=== PATIENT | female | born 1935 | race American Indian/Alaskan Native ===

== ENCOUNTER 2016-07-23 18:15 | Inpatient (IN) | payer MEDICARE ==
[2016-07-23] MEDS ORDERED: TYLENOL PR ONE (18:44)
[2016-07-23] MEDS ORDERED: TYLENOL PR STA (18:54)
[2016-07-23] MEDS ORDERED: NACL 0.9% 500 ML 500 ML IV ONE (18:54)
--- NOTE | 2016-07-23 19:31 | Emergency Department Report ---
HPI - General Chief Complaint: Altered Mental Status Time Seen by Provider: 07/23/16 19:08 - HPI HPI: Room 7 The patient is an 80-year-old female sent from her personal group home with a chief complaint of lethargy/altered mental status. Patient was afebrile her personal group home. EMS reports that the patient is at her baseline mentally however seems lethargic. The patient only responds after tactile stimulation and when questioned she denies any complaints. Location: Mental Status Duration: Unknown Quality: Lethargy Severity:. Moderate Modifying factors: [see above] Context: [see above] Mode of transportation: [not driving] ED Past Medical Hx - Past Medical History Previous Medical History?: Yes Hx Hypertension: Yes Hx Seizures: Yes Hx Psychiatric Treatment: Yes (risperidone) Hx Dementia: Yes (ALZHEIMER'S) Additional medical history: hypothyroidism - Surgical History Past Surgical History?: Yes Hx Breast Surgery: Yes (left breast mastectomy) - Family History Family history: no significant - Social History Smoking Status: Unknown if ever smoked - Medications Home Medications: Home Medications Medication Instructions Recorded Confirmed Last Taken Type Ammonium Lactate [Lac-Hydrin 225 gm TP DAILY 07/23/16 07/23/16 07/21/16 History Lotion] Anastrozole (Nf) [Arimidex (Nf)] 1 mg PO DAILY 07/23/16 07/23/16 07/23/16 History Donepezil HCl 10 mg PO DAILY 07/23/16 07/23/16 07/23/16 History Hydrochlorothiazide [Hctz] 12.5 mg PO QDAY 07/23/16 07/23/16 07/23/16 History Memantine HCl [Namenda] 5 mg PO DAILY 07/23/16 07/23/16 07/23/16 History Mometasone Furoate [Nasonex] 2 spray NS QDAY 07/23/16 07/23/16 07/19/16 History Simvastatin [Zocor TAB] 10 mg PO QHS 07/23/16 07/23/16 07/22/16 History Trazodone HCl 50 mg PO PRN 07/23/16 07/23/16 07/14/16 History amLODIPine [Norvasc] 10 mg PO DAILY 07/23/16 07/23/16 07/23/16 History risperiDONE [RisperDAL] 0.25 mg PO BID 07/23/16 07/23/16 Unknown History ED Review of Systems ROS: Stated complaint: AMS Other details as noted in HPI Comment: Unobtainable due to pts medical conditions Physical Exam - Physical Exam Vital Signs: Vital Signs 07/23/16 07/23/16 18:45 19:23 Temperature 101.6 F H Pulse Rate 83 Respiratory 18 18 Rate Blood Pressure 110/54 O2 Sat by Pulse 98 98 Oximetry Physical Exam: GENERAL: The patient is well-developed well-nourished female lying on stretcher not appearing to be in acute distress. [] HEENT: Normocephalic. Atraumatic. Patient has moist mucous membranes. NECK: Supple. Trachea midline CHEST/LUNGS: Clear to auscultation. There is no respiratory distress noted. HEART/CARDIOVASCULAR: Regular. There is no tachycardia. There is no gallop rub or murmur. ABDOMEN: Abdomen is soft, nontender. Patient has normal bowel sounds. There is no abdominal distention. SKIN: There is no rash. There is no edema. There is no diaphoresis. NEURO: The patient is asleep but awakens to tactile stimuli. The patient is cooperative. The patient has normal speech MUSCULOSKELETAL: There is no evidence of acute injury. ED Course Vital Signs 07/23/16 07/23/16 18:45 19:23 Temperature 101.6 F H Pulse Rate 83 Respiratory 18 18 Rate Blood Pressure 110/54 O2 Sat by Pulse 98 98 Oximetry ED Medical Decision Making - Lab Data Result diagrams: 07/23/16 19:11 07/23/16 19:11 Laboratory Tests 07/23/16 07/23/16 07/23/16 19:06 19:11 19:11 WBC 13.0 H RBC 3.39 L Hgb 10.2 Hct 29.5 L MCV 87 MCH 30 MCHC 34 RDW 13.9 Plt Count 190 Lymph % (Auto) 3.7 L [place] % (Auto) 6.9 Eos % (Auto) 0.0 Baso % (Auto) 0.2 Lymph # 0.5 L [place] # 0.9 H Eos # 0.0 Baso # 0.0 Seg Neutrophils % 89.2 H Seg Neutrophils # 11.6 H PT 15.0 H INR 1.19 H VBG pH Sodium Potassium Chloride Carbon Dioxide Anion Gap BUN Creatinine Estimated GFR BUN/Creatinine Ratio Glucose Lactic Acid Calcium Total Bilirubin AST ALT Alkaline Phosphatase Total Protein Albumin Albumin/Globulin Ratio Urine Color Yellow Urine Turbidity Cloudy Urine pH 6.0 Ur Specific [place] 1.009 Urine Protein 30 mg/dl Urine Glucose (UA) Neg Urine Ketones Neg Urine Blood Mod Urine Nitrite Pos Urine Bilirubin Neg Urine Urobilinogen < 2.0 Ur Leukocyte Esterase Lg Urine WBC (Auto) 153.0 H Urine RBC (Auto) 6.0 Urine Bacteria (Auto) 2+ Urine Mucus Few 07/23/16 07/23/16 07/23/16 19:11 19:11 19:11 WBC RBC Hgb Hct MCV MCH MCHC RDW Plt Count Lymph % (Auto) [place] % (Auto) Eos % (Auto) Baso % (Auto) Lymph # [place] # Eos # Baso # Seg Neutrophils % Seg Neutrophils # PT INR VBG pH 7.432 H Sodium 140 Potassium 2.6 L* Chloride 98.3 Carbon Dioxide 28 Anion Gap 16 BUN 15 Creatinine 0.8 Estimated GFR > 60 BUN/Creatinine Ratio 18.75 Glucose 118 H Lactic Acid 1.90 Calcium 8.0 L Total Bilirubin 0.40 AST 14 ALT 10 Alkaline Phosphatase 81 Total Protein 6.3 Albumin 3.4 L Albumin/Globulin Ratio 1.2 Urine Color Urine Turbidity Urine pH Ur Specific [place] Urine Protein Urine Glucose (UA) Urine Ketones Urine Blood Urine Nitrite Urine Bilirubin Urine Urobilinogen Ur Leukocyte Esterase Urine WBC (Auto) Urine RBC (Auto) Urine Bacteria (Auto) Urine Mucus - EKG Data -: EKG Interpreted by Me EKG shows normal: sinus rhythm Rate: normal - EKG Data When compared to previous EKG there are: previous EKG unavailable Interpretation: nonspecific ST-T wave ashley (biphasic twaves leads v2, v3) - Radiology Data Radiology results: image reviewed (chest x-ray) interpreted by me: Chest x-ray-no focal infiltrates, no pneumothorax - Differential Diagnosis UTI Critical care attestation.: If time is entered above; I have spent that time in minutes in the direct care of this critically ill patient, excluding procedure time. ED Disposition Clinical Impression: Fever, UTI (urinary tract infection), Hypokalemia Disposition: OP ADMITTED IP TO THIS HOSP Is pt being admited?: Yes Does the pt Need Aspirin: Yes Condition: Fair Referrals: PRIMARY CARE, [Primary Care Provider] - 3-5 Days Time of Disposition: 21:10 (hospitalist notifiedh)
--- NOTE | 2016-07-23 19:31 | Admit Criteria Form ---
Admission Criteria Documentation: SEPSIS and OTHER FEBRILE ILLNESS, W/O FOCAL INFECTION Clinical Indications for Admission to Inpatient Care ( Place 'X' for any and all applicable criteria): Admission is indicated for ANY ONE of the following (1)(2)(3)(4): [ ] I. Bacteremia [ ]II. Suspected or identified specific infection requiring hospitalization (eg, meningitis, endocarditis) [ ]III. Hemodynamic instability [ ]IV. Altered mental status [ ]V. Failure or unavailability of outpatient antimicrobial treatment [ ]. Hypoxemia [ ]VII. Seizures [ ]VIII. High-risk febrile neutropenia [ ]IX. Need for parenteral antibiotic in patient who is likely to abuse vascular access device (eg, injection drug user) [A](7) [ ]X. Temperature greater than 104.9 degrees F (40.5 degrees C) (oral) [X ]XI. Inpatient admission required rather than observation care because of ANY ONE of the following: [ X]1) Specific infection identified that is too severe for outpatient treatment or observation care trial [ ]2) Metabolic disorder (eg, hypoglycemia, hyperglycemia, metabolic acidosis) that is severe or persistent [ ]3) Temperature greater than 103.1 degrees F (39.5 degrees C) ( oral) that is not responsive to observation care treatment [ ]4) IV fluid to replace significant ongoing (eg, for over 24 hours) losses (> 3 L/m2 per day) [ ]5) Supplemental oxygen or respiratory treatments for over 24 hours that is performable only in acute inpatient setting [ ]6) Parenteral nutrition regimen need that must be implemented on inpatient basis [ ]7) Strict or protective (eg, laminar flow) isolation [ ]8) Other condition, treatment or monitoring requiring inpatient admission Extended stay beyond goal length of stay may be needed for(1)(3) [ ]a) Sepsis or septic shock(22) [ ]b) Positive blood cultures [ ]c) Insufficient oral intake [ ]d) High-risk febrile neutropenia(29)(30) [ ]e) Continued fever and clinical instability [ ]f) Clinically active comorbid illness (e.g,heart failure, renal failure , diabetes) The original [facility] [employer] content created by Yuliana Cooper has been revised. The portions of the content which have been revised are identified through the use of italic text or in bold, and Yuliana Cooper has neither reviewed nor approved the modified material. All other unmodified content is copyright [facility]. Please see references footnoted in the original [facility] edition 2016 Admission Criteria Met: Yes
[2016-07-23 19:47] LABS: Basophils % (Auto) 0.2 % (0.0-1.8); Hematocrit 29.5 % (30.3-42.9); Hemoglobin 10.2 gm/dl (10.1-14.3); Mean Corpuscular HGB Conc 34 % (30-34); Mean Corpuscular Hemoglobin 30 pg (28-32); Mean Corpuscular Volume 87 fl (79-97); Platelet Count 190 K/mm3 (140-440); Red Blood Count 3.39 M/mm3 (3.65-5.03); Red Cell Distribution Width 13.9 % (13.2-15.2)
[2016-07-23 19:58] LABS: INR 1.19 (0.87-1.13)
[2016-07-23 20:10] LABS: Alanine Aminotransferase 10 units/L (7-56); Albumin 3.4 g/dL (3.9-5); Albumin/Globulin Ratio 1.2 %; Alkaline Phosphatase 81 units/L (35-129); Anion Gap 16 mmol/L; BUN/Creatinine Ratio 18.75; Blood Urea Nitrogen 15 mg/dL (7-17); Carbon Dioxide 28 mmol/L (22-30); Chloride 98.3 mmol/L (98-107); Glucose 118 mg/dL (65-100); Sodium 140 mmol/L (137-145); Total Protein 6.3 g/dL (6.3-8.2)
[2016-07-23 20:14] LABS: Potassium 2.6 mmol/L (3.6-5.0)
[2016-07-23 20:55] LABS: Bacteria,Urine 2+ /HPF (Negative); Bilirubin,Urine NEG (Negative); Blood,Urine MOD (Negative); Ketones,Urine NEG (Negative); Leukocyte Esterase,Urine LG (Negative); Mucus,Urine FEW /HPF; Nitrite,Urine POS (Negative); Urobilinogen,Urine < 2.0 mg/dL (<2.0)
[2016-07-23] MEDS ORDERED: ROCEPHIN/NS 1 GM/50 ML 1 GM/50 ML BAG IV ONE (21:07)
[2016-07-23] MEDS: KCL 10MEQ/100ML 10 MEQ/100 ML BAG IV SCH ×2 (21:35→22:23)
[2016-07-23] MEDS ORDERED: KCL 10MEQ/100ML 10 MEQ/100 ML BAG IV ONE (22:20)
[2016-07-24] MEDS ORDERED: KCL 10MEQ/100ML 10 MEQ/100 ML BAG IV ONE ×2 (00:23→08:00)
[2016-07-24] MEDS: KCL 10MEQ/100ML 10 MEQ/100 ML BAG IV SCH (00:31)
[2016-07-24] MEDS ORDERED: ZOFRAN IV PRN (01:04)
--- NOTE | 2016-07-24 01:12 | History and Physical Report ---
History of Present Illness Date of examination: 07/23/16 Date of admission: 07/23/16 21:07 Chief complaint: Altered mental status History of present illness: Patient is a 80-year-old woman from [facility] with a documented history of severe dementia, seizure disorder, hypertension, ?breast cancer on Anastrozole and hypothyroidism who presents with fever and altered mental status with lethargy. She was found have a temperature 101.6 white blood cell count of 13. She was also found have potassium 2.6. She gives no history. Past History Past Medical History: other (as hpi) Past Surgical History: Other (unknown) Social history: full code. denies: smoking, alcohol abuse, prescription drug abuse, IV drug use Family history: no significant family history Medications and Allergies Allergies Allergy/AdvReac Type Severity Reaction Status Date / Time No Known Allergies Allergy Verified 01/06/16 13:37 Home Medications Medication Instructions Recorded Confirmed Last Taken Type Ammonium Lactate [Lac-Hydrin 225 gm TP DAILY 07/23/16 07/23/16 07/21/16 History Lotion] Anastrozole (Nf) [Arimidex (Nf)] 1 mg PO DAILY 07/23/16 07/23/16 07/23/16 History Donepezil HCl 10 mg PO DAILY 07/23/16 07/23/16 07/23/16 History Hydrochlorothiazide [Hctz] 12.5 mg PO QDAY 07/23/16 07/23/16 07/23/16 History Memantine HCl [Namenda] 5 mg PO DAILY 07/23/16 07/23/16 07/23/16 History Mometasone Furoate [Nasonex] 2 spray NS QDAY 07/23/16 07/23/16 07/19/16 History Simvastatin [Zocor TAB] 10 mg PO QHS 07/23/16 07/23/16 07/22/16 History Trazodone HCl 50 mg PO PRN 07/23/16 07/23/16 07/14/16 History amLODIPine [Norvasc] 10 mg PO DAILY 07/23/16 07/23/16 07/23/16 History risperiDONE [RisperDAL] 0.25 mg PO BID 07/23/16 07/23/16 Unknown History Active Meds: Active Medications Acetaminophen (Tylenol) 650 mg [place] Q6H PRN PRN Reason: Non Cardiac Pain or Temp>100.5 Dextrose/Sodium Chloride (D5ns) 1,000 mls @ 125 mls/hr IV DIRECT ANALI Ondansetron HCl (Zofran) 4 mg IV Q4H PRN PRN Reason: Nausea And Vomiting Pantoprazole Sodium (Protonix) 40 mg IV QDAY ANALI Review of Systems ROS unobtainable: due to mental status Exam - Physical Exam Narrative exam: GEN: Chronically debilitated cachectic, nonverbal but awake HEENT: NCAT, PERRL, EOMI, OP CLEAR NECK: SUPPLE, NO THYROMEGALY, NO JVD, NO LAD CVS: RRR, NORMAL S1S2 LUNGS/CHEST: CTA B, NORMAL CHEST EXPANSION B, GOOD AIR ENTRY B ABD: SOFT NTND, GBS, NO REBOUND OR GUARDING EXT/SKIN: NO SIGNIFICANT EDEMA OR RASH, poor skin turgor and dry mucous membranes MSK: Spontaneous movement of hands, contracted lower extremity NEURO: CN 2-12 GROSSLY INTACT, doesn't follow commands PSY: CALM - Constitutional Vitals: Temp Pulse Resp BP Pulse Ox 99 F 84 21 95/46 99 07/23/16 21:26 07/23/16 22:01 07/23/16 22:01 07/23/16 22:01 07/23/16 22:01 Results - Labs CBC & Chem 7: 07/23/16 19:11 07/23/16 19:11 Assessment and Plan Patient is a 80-year-old woman from [facility] with a documented history of severe dementia, seizure disorder, hypertension, ?breast cancer on Anastrozole and hypothyroidism who presents with fever and altered mental status with lethargy. She was found have a temperature 101.6 white blood cell count of 13. She was also found have potassium 2.6. She gives no history. -Sepsis due to UTI: Blood culture, urine culture ordered in the ED, discussed with Dr. Babcock for sepsis protocol, treat with antibiotics IV fluids -UTI complicated: use iv zosyn -Acute metabolic encephalopathy with dehydration and sepsis: Add IV fluids -Severe hypokalemia: Replace and add to IV fluids -DVT prophylaxis: SCDs and subcutaneous Lovenox -Suspected severe malnutrition due to advance dementia: Add dextrose to IV fluids -Full code
[2016-07-24] MEDS ORDERED: D5NS 1,000 ML IV SCH (02:00)
[2016-07-24] MEDS ORDERED: NACL 0.9% 1000 ML 1,000 ML IV SCH (02:00)
[2016-07-24 06:16] LABS: Hematocrit 31.4 % (30.3-42.9); Hemoglobin 10.5 gm/dl (10.1-14.3); Mean Corpuscular HGB Conc 33 % (30-34); Mean Corpuscular Hemoglobin 29 pg (28-32); Mean Corpuscular Volume 88 fl (79-97); Platelet Count 184 K/mm3 (140-440); Red Blood Count 3.56 M/mm3 (3.65-5.03); Red Cell Distribution Width 14.2 % (13.2-15.2); White Blood Count 11.9 K/mm3 (4.5-11.0)
[2016-07-24 06:19] LABS: Anion Gap 16 mmol/L; BUN/Creatinine Ratio 17.14; Blood Urea Nitrogen 12 mg/dL (7-17); Calcium 8.3 mg/dL (8.4-10.2); Carbon Dioxide 29 mmol/L (22-30); Chloride 98.9 mmol/L (98-107); Glucose 104 mg/dL (65-100); Sodium 141 mmol/L (137-145)
[2016-07-24] MEDS: ZOSYN/NS 4.5GM/100ML 4.5 GM/100 ML VIAL IV SCH ×2 (07:48→14:17)
--- NOTE | 2016-07-24 09:26 | XRay Report ---
PORTABLE CHEST INDICATION: Possible sepsis. COMPARISON: 03/07/2013 FINDINGS: Portable, frontal chest radiograph again demonstrates normal cardiomediastinal silhouette and right subclavian port tip along the SVC. Right hemidiaphragm slightly elevated. Clear lungs. Aortic atherosclerotic calcifications. Demineralized bones. EKG leads. CONCLUSION: No acute chest process or significant interval change, as described. Thank you for the opportunity to participate in this patient's care.
[2016-07-24] MEDS: TYLENOL PR PRN (09:53)
[2016-07-24] MEDS: ARICEPT PO SCH (09:58)
[2016-07-24] MEDS: NAMENDA XR PO SCH (09:58)
[2016-07-24] MEDS: RisperDAL PO SCH ×2 (09:59→22:07)
[2016-07-24] MEDS ORDERED: NON-FORMULARY (Anastrozole (Nf) 1 MG) PO SCH (10:00)
[2016-07-24] MEDS ORDERED: PROTONIX IV SCH (10:00)
--- NOTE | 2016-07-24 10:12 | Progress Note ---
Assessment and Plan Assessment and plan: Sepsis due to UTI.follow-up Blood culture, urine culture ordered in the ED. Continue antibiotics and IV fluids. UTI, complicated. Continue iv zosyn. Follow-up urine culture Toxic metabolic encephalopathy. Continue to treat underlying medical causes. Severe hypokalemia. Replete. Follow-up BMP. DVT prophylaxis. SCDs and subcutaneous Lovenox Probable severe malnutrition due to advance dementia. Continue IV fluid hydration. Follow up pre-albumin. Nutritional consultation. History Interval history: Patient extremely somnolent this morning. No new episodes overnight. Hospitalist Physical - Constitutional Vitals: Temp Pulse Resp BP Pulse Ox 102.2 F H 82 16 131/59 99 07/24/16 08:00 07/24/16 08:00 07/24/16 08:00 07/24/16 08:00 07/24/16 08:00 General appearance: Present: no acute distress, well-nourished - EENT Eyes: Present: PERRL, EOM intact ENT: hearing intact, clear oral mucosa, dentition normal - Neck Neck: Present: supple, normal ROM - Respiratory Respiratory effort: normal Respiratory: bilateral: CTA - Cardiovascular Rhythm: regular Heart Sounds: Present: S1 & S2. Absent: gallop, rub - Extremities Extremities: no ischemia, No edema, Full ROM - Abdominal General gastrointestinal: soft, non-tender, non-distended, normal bowel sounds - Integumentary Integumentary: Present: clear, warm, dry - Neurologic Neurologic: CNII-XII intact, moves all extremities, other (somnolent, poorly responsive) Results - Labs CBC & Chem 7: 07/24/16 05:37 07/24/16 05:37 Labs: Laboratory Last Values WBC 11.9 K/mm3 (4.5-11.0) H 07/24/16 05:37 RBC 3.56 M/mm3 (3.65-5.03) L 07/24/16 05:37 Hgb 10.5 gm/dl (10.1-14.3) 07/24/16 05:37 Hct 31.4 % (30.3-42.9) 07/24/16 05:37 MCV 88 fl (79-97) 07/24/16 05:37 MCH 29 pg (28-32) 07/24/16 05:37 MCHC 33 % (30-34) 07/24/16 05:37 RDW 14.2 % (13.2-15.2) 07/24/16 05:37 Plt Count 184 K/mm3 (140-440) 07/24/16 05:37 Lymph % (Auto) 3.7 % (13.4-35.0) L 07/23/16 19:11 [place] % (Auto) 6.9 % (0.0-7.3) 07/23/16 19:11 Eos % (Auto) 0.0 % (0.0-4.3) 07/23/16 19:11 Baso % (Auto) 0.2 % (0.0-1.8) 07/23/16 19:11 Lymph # 0.5 K/mm3 (1.2-5.4) L 07/23/16 19:11 [place] # 0.9 K/mm3 (0.0-0.8) H 07/23/16 19:11 Eos # 0.0 K/mm3 (0.0-0.4) 07/23/16 19:11 Baso # 0.0 K/mm3 (0.0-0.1) 07/23/16 19:11 Seg Neutrophils % 89.2 % (40.0-70.0) H 07/23/16 19:11 Seg Neutrophils # 11.6 K/mm3 (1.8-7.7) H 07/23/16 19:11 PT 15.0 Sec. (12.2-14.9) H 07/23/16 19:11 INR 1.19 (0.87-1.13) H 07/23/16 19:11 VBG pH 7.432 (7.320-7.420) H 07/23/16 19:11 Sodium 141 mmol/L (137-145) 07/24/16 05:37 Potassium 3.0 mmol/L (3.6-5.0) L 07/24/16 05:37 Chloride 98.9 mmol/L (98-107) 07/24/16 05:37 Carbon Dioxide 29 mmol/L (22-30) 07/24/16 05:37 Anion Gap 16 mmol/L 07/24/16 05:37 BUN 12 mg/dL (7-17) 07/24/16 05:37 Creatinine 0.7 mg/dL (0.7-1.2) 07/24/16 05:37 Estimated GFR > 60 ml/min 07/24/16 05:37 BUN/Creatinine Ratio 17.14 % 07/24/16 05:37 Glucose 104 mg/dL (65-100) H 07/24/16 05:37 Lactic Acid 1.00 mmol/L (0.7-2.0) 07/23/16 21:45 Calcium 8.3 mg/dL (8.4-10.2) L 07/24/16 05:37 Total Bilirubin 0.40 mg/dL (0.1-1.2) 07/23/16 19:11 AST 14 units/L (5-40) 07/23/16 19:11 ALT 10 units/L (7-56) 07/23/16 19:11 Alkaline Phosphatase 81 units/L (35-129) 07/23/16 19:11 Total Protein 6.3 g/dL (6.3-8.2) 07/23/16 19:11 Albumin 3.4 g/dL (3.9-5) L 07/23/16 19:11 Albumin/Globulin Ratio 1.2 % 07/23/16 19:11 Urine Color Yellow (Yellow) 07/23/16 19:06 Urine Turbidity Cloudy (Clear) 07/23/16 19:06 Urine pH 6.0 (5.0-7.0) 07/23/16 19:06 Ur Specific [place] 1.009 (1.003-1.030) 07/23/16 19:06 Urine Protein 30 mg/dl mg/dL (Negative) 07/23/16 19:06 Urine Glucose (UA) Neg mg/dL (Negative) 07/23/16 19:06 Urine Ketones Neg mg/dL (Negative) 07/23/16 19:06 Urine Blood Mod (Negative) 07/23/16 19:06 Urine Nitrite Pos (Negative) 07/23/16 19:06 Urine Bilirubin Neg (Negative) 07/23/16 19:06 Urine Urobilinogen < 2.0 mg/dL (<2.0) 07/23/16 19:06 Ur Leukocyte Esterase Lg (Negative) 07/23/16 19:06 Urine WBC (Auto) 153.0 /HPF (0.0-6.0) H 07/23/16 19:06 Urine RBC (Auto) 6.0 /HPF (0.0-6.0) 07/23/16 19:06 Urine Bacteria (Auto) 2+ /HPF (Negative) 07/23/16 19:06 Urine Mucus Few /HPF 07/23/16 19:06
[2016-07-24] MEDS ORDERED: LOVENOX SUB-Q SCH (14:00)
[2016-07-24 14:32] LABS: Anion Gap 19 mmol/L; BUN/Creatinine Ratio 15.71; Blood Urea Nitrogen 11 mg/dL (7-17); Calcium 8.3 mg/dL (8.4-10.2); Carbon Dioxide 28 mmol/L (22-30); Chloride 99.7 mmol/L (98-107); Glucose 110 mg/dL (65-100); Potassium 3.2 mmol/L (3.6-5.0); Sodium 143 mmol/L (137-145)
[2016-07-24] MEDS: D5W/NS W/KCL 40MEQ 40 MEQ/1,000 ML BAG IV SCH ×2 (15:23→23:23)
[2016-07-24] MEDS ORDERED: PEPCID IV SCH (22:00)
[2016-07-24] MEDS: ZOCOR PO SCH (22:07)
[2016-07-24] MEDS: PEPCID IV SCH (22:19)
[2016-07-25] MEDS: ZOSYN/NS 2.25 GM/50ML 2.25 GM/50 ML BAG IV SCH ×4 (00:55→17:49)
[2016-07-25] MEDS: TYLENOL PR PRN (00:58)
[2016-07-25 07:59] LABS: Anion Gap 17 mmol/L; Blood Urea Nitrogen 7 mg/dL (7-17); Carbon Dioxide 23 mmol/L (22-30); Chloride 113.7 mmol/L (98-107); Glucose 148 mg/dL (65-100); Potassium 3.9 mmol/L (3.6-5.0); Sodium 150 mmol/L (137-145)
[2016-07-25 08:00] LABS: Hematocrit 29.7 % (30.3-42.9); Hemoglobin 9.6 gm/dl (10.1-14.3); Mean Corpuscular HGB Conc 33 % (30-34); Mean Corpuscular Hemoglobin 29 pg (28-32); Mean Corpuscular Volume 90 fl (79-97); Platelet Count 151 K/mm3 (140-440); Red Blood Count 3.28 M/mm3 (3.65-5.03); Red Cell Distribution Width 13.9 % (13.2-15.2); White Blood Count 5.4 K/mm3 (4.5-11.0)
[2016-07-25] MEDS: KCL 10MEQ/100ML 10 MEQ/100 ML BAG IV SCH (08:53)
[2016-07-25] MEDS: LOVENOX SUB-Q SCH (09:48)
[2016-07-25] MEDS: RisperDAL PO SCH ×2 (09:49→22:35)
[2016-07-25] MEDS: NAMENDA XR PO SCH (09:49)
[2016-07-25] MEDS: ARICEPT PO SCH (09:49)
--- NOTE | 2016-07-25 10:50 | Progress Note ---
Assessment and Plan Assessment and plan: Sepsis with UTI. Follow-up Blood culture and urine culture. Continue antibiotics and IV fluids. UTI, complicated. Continue iv zosyn. Follow-up urine culture Toxic metabolic encephalopathy. Improved. Continue to treat underlying medical causes. Severe hypokalemia. Replete. Follow-up BMP. DVT prophylaxis. SCDs and subcutaneous Lovenox Probable severe malnutrition due to advance dementia. Continue IV fluid hydration. Follow up pre-albumin. History Interval history: Patient is much more responsive and alert today. No new issues overnight. Hospitalist Physical - Constitutional Vitals: Temp Pulse Resp BP Pulse Ox 98.2 F 72 18 139/79 97 07/25/16 08:00 07/25/16 08:00 07/25/16 08:00 07/25/16 08:00 07/25/16 08:00 General appearance: Present: no acute distress, well-nourished - EENT Eyes: Present: PERRL, EOM intact ENT: hearing intact, clear oral mucosa, dentition normal - Neck Neck: Present: supple, normal ROM - Respiratory Respiratory effort: normal Respiratory: bilateral: CTA - Cardiovascular Rhythm: regular Heart Sounds: Present: S1 & S2. Absent: gallop, rub - Extremities Extremities: no ischemia, No edema, Full ROM - Abdominal General gastrointestinal: soft, non-tender, non-distended, normal bowel sounds - Integumentary Integumentary: Present: clear, warm, dry - Neurologic Neurologic: CNII-XII intact, moves all extremities Results - Labs CBC & Chem 7: 07/25/16 06:55 07/25/16 06:55 Labs: Laboratory Last Values WBC 5.4 K/mm3 (4.5-11.0) 07/25/16 06:55 RBC 3.28 M/mm3 (3.65-5.03) L 07/25/16 06:55 Hgb 9.6 gm/dl (10.1-14.3) L 07/25/16 06:55 Hct 29.7 % (30.3-42.9) L 07/25/16 06:55 MCV 90 fl (79-97) 07/25/16 06:55 MCH 29 pg (28-32) 07/25/16 06:55 MCHC 33 % (30-34) 07/25/16 06:55 RDW 13.9 % (13.2-15.2) 07/25/16 06:55 Plt Count 151 K/mm3 (140-440) 07/25/16 06:55 Lymph % (Auto) Bench [employer] Technician 07/25/16 06:55 [place] % (Auto) Bench [employer] Out Technician 07/25/16 06:55 Eos % (Auto) Bench [employer] Out Technician 07/25/16 06:55 Baso % (Auto) Bench [employer] Technician 07/25/16 06:55 Lymph # [employer]ician 07/25/16 06:55 Howard # Bench [employer] Out Technician 07/25/16 06:55 Eos # Bench [employer] Out Technician 07/25/16 06:55 Baso # Bench [employer] Out Technician 07/25/16 06:55 Seg Neutrophils % [employer] Out Technician 07/25/16 06:55 Seg Neutrophils # Bench [employer] Out Technician 07/25/16 06:55 PT 15.0 Sec. (12.2-14.9) H 07/23/16 19:11 INR 1.19 (0.87-1.13) H 07/23/16 19:11 VBG pH 7.432 (7.320-7.420) H 07/23/16 19:11 Sodium 150 mmol/L (137-145) H 07/25/16 06:55 Potassium 3.9 mmol/L (3.6-5.0) D 07/25/16 06:55 Chloride 113.7 mmol/L (98-107) H 07/25/16 06:55 Carbon Dioxide 23 mmol/L (22-30) 07/25/16 06:55 Anion Gap 17 mmol/L 07/25/16 06:55 BUN 7 mg/dL (7-17) 07/25/16 06:55 Creatinine 0.7 mg/dL (0.7-1.2) 07/25/16 06:55 Estimated GFR > 60 ml/min 07/25/16 06:55 BUN/Creatinine Ratio 10.00 % 07/25/16 06:55 Glucose 148 mg/dL (65-100) H 07/25/16 06:55 Lactic Acid 1.00 mmol/L (0.7-2.0) 07/23/16 21:45 Calcium 8.0 mg/dL (8.4-10.2) L 07/25/16 06:55 Total Bilirubin 0.40 mg/dL (0.1-1.2) 07/23/16 19:11 AST 14 units/L (5-40) 07/23/16 19:11 ALT 10 units/L (7-56) 07/23/16 19:11 Alkaline Phosphatase 81 units/L (35-129) 07/23/16 19:11 Total Protein 6.3 g/dL (6.3-8.2) 07/23/16 19:11 Albumin 3.4 g/dL (3.9-5) L 07/23/16 19:11 Albumin/Globulin Ratio 1.2 % 07/23/16 19:11 Prealbumin 0.110 g/L (0.200-0.400) L 07/24/16 05:37 Urine Color Yellow (Yellow) 07/23/16 19:06 Urine Turbidity Cloudy (Clear) 07/23/16 19:06 Urine pH 6.0 (5.0-7.0) 07/23/16 19:06 Ur Specific [place] 1.009 (1.003-1.030) 07/23/16 19:06 Urine Protein 30 mg/dl mg/dL (Negative) 07/23/16 19:06 Urine Glucose (UA) Neg mg/dL (Negative) 07/23/16 19:06 Urine Ketones Neg mg/dL (Negative) 07/23/16 19:06 Urine Blood Mod (Negative) 07/23/16 19:06 Urine Nitrite Pos (Negative) 07/23/16 19:06 Urine Bilirubin Neg (Negative) 07/23/16 19:06 Urine Urobilinogen < 2.0 mg/dL (<2.0) 07/23/16 19:06 Ur Leukocyte Esterase Lg (Negative) 07/23/16 19:06 Urine WBC (Auto) 153.0 /HPF (0.0-6.0) H 07/23/16 19:06 Urine RBC (Auto) 6.0 /HPF (0.0-6.0) 07/23/16 19:06 Urine Bacteria (Auto) 2+ /HPF (Negative) 07/23/16 19:06 Urine Mucus Few /HPF 07/23/16 19:06
[2016-07-25] MEDS: D5W/NS W/KCL 40MEQ 40 MEQ/1,000 ML BAG IV SCH ×2 (14:01→22:53)
[2016-07-25] MEDS: NORVASC PO SCH (18:08)
[2016-07-25] MEDS: PEPCID IV SCH (22:35)
[2016-07-25] MEDS: ZOCOR PO SCH (22:36)
[2016-07-26] MEDS: ZOSYN/NS 2.25 GM/50ML 2.25 GM/50 ML BAG IV SCH ×4 (00:23→17:29)
[2016-07-26] MEDS ORDERED: KCL 40 MEQ in D5NS 1,000 ML IV SCH (10:00)
[2016-07-26] MEDS: NORVASC PO SCH (10:05)
[2016-07-26] MEDS: NAMENDA XR PO SCH (10:05)
[2016-07-26] MEDS: RisperDAL PO SCH ×2 (10:05→22:49)
[2016-07-26] MEDS: LOVENOX SUB-Q SCH (10:05)
[2016-07-26] MEDS: ARICEPT PO SCH (10:05)
[2016-07-26 10:08] LABS: Basophils % (Auto) 0.5 % (0.0-1.8); Eosinophils % (Auto) 3.2 % (0.0-4.3); Hematocrit 33.9 % (30.3-42.9); Mean Corpuscular HGB Conc 33 % (30-34); Mean Corpuscular Hemoglobin 29 pg (28-32); Mean Corpuscular Volume 90 fl (79-97); Platelet Count 208 K/mm3 (140-440); Red Blood Count 3.78 M/mm3 (3.65-5.03); Red Cell Distribution Width 14.6 % (13.2-15.2); White Blood Count 5.4 K/mm3 (4.5-11.0)
[2016-07-26 10:34] LABS: Anion Gap 19 mmol/L; Blood Urea Nitrogen 6 mg/dL (7-17); Calcium 8.2 mg/dL (8.4-10.2); Carbon Dioxide 22 mmol/L (22-30); Chloride 107.9 mmol/L (98-107); Glucose 140 mg/dL (65-100); Potassium 4.4 mmol/L (3.6-5.0); Sodium 144 mmol/L (137-145)
--- NOTE | 2016-07-26 11:36 | Progress Note ---
Assessment and Plan Assessment and plan: Sepsis with UTI. Blood cultures are negative. Urine culture reveals Escherichia coli. Continue antibiotics and IV fluids. Gram-negative Escherichia coli UTI, complicated. Continue iv zosyn --cultures are sensitive. Toxic metabolic encephalopathy. Improved. Continue to treat underlying medical causes. Severe hypokalemia. Resolved. Follow-up BMP. DVT prophylaxis. SCDs and subcutaneous Lovenox Probable severe malnutrition due to advance dementia. Continue IV fluid hydration. Follow up pre-albumin. History Interval history: Patient is much more responsive and alert today. No new issues overnight. Hospitalist Physical - Constitutional Vitals: Temp Pulse Resp BP Pulse Ox 98.3 F 76 16 132/72 97 07/26/16 08:00 07/26/16 08:00 07/26/16 08:00 07/26/16 08:00 07/26/16 08:00 General appearance: Present: no acute distress, well-nourished - EENT Eyes: Present: PERRL, EOM intact ENT: hearing intact, clear oral mucosa, dentition normal - Neck Neck: Present: supple, normal ROM - Respiratory Respiratory effort: normal Respiratory: bilateral: CTA - Cardiovascular Rhythm: regular Heart Sounds: Present: S1 & S2. Absent: gallop, rub - Extremities Extremities: no ischemia, No edema, Full ROM - Abdominal General gastrointestinal: soft, non-tender, non-distended, normal bowel sounds - Integumentary Integumentary: Present: clear, warm, dry - Neurologic Neurologic: CNII-XII intact, moves all extremities Results - Labs CBC & Chem 7: 07/26/16 09:28 07/26/16 09:28 Labs: Laboratory Last Values WBC 5.4 K/mm3 (4.5-11.0) 07/26/16 09:28 RBC 3.78 M/mm3 (3.65-5.03) 07/26/16 09:28 Hgb 11.0 gm/dl (10.1-14.3) 07/26/16 09:28 Hct 33.9 % (30.3-42.9) 07/26/16 09:28 MCV 90 fl (79-97) 07/26/16 09:28 MCH 29 pg (28-32) 07/26/16 09: MCHC 33 % (30-34) 07/26/16 09:28 RDW 14.6 % (13.2-15.2) 07/26/16 09:28 Plt Count 208 K/mm3 (140-440) 07/26/16 09:28 Lymph % (Auto) 20.3 % (13.4-35.0) 07/26/16 09:28 [place] % (Auto) 10.5 % (0.0-7.3) H 07/26/16 09:28 Eos % (Auto) 3.2 % (0.0-4.3) 07/26/16 09:28 Baso % (Auto) 0.5 % (0.0-1.8) 07/26/16 09:28 Lymph # 1.1 K/mm3 (1.2-5.4) L 07/26/16 09:28 [place] # 0.6 K/mm3 (0.0-0.8) 07/26/16 09:28 Eos # 0.2 K/mm3 (0.0-0.4) 07/26/16 09:28 Baso # 0.0 K/mm3 (0.0-0.1) 07/26/16 09:28 Seg Neutrophils % 65.5 % (40.0-70.0) 07/26/16 09:28 Seg Neutrophils # 3.5 K/mm3 (1.8-7.7) 07/26/16 09:28 PT 15.0 Sec. (12.2-14.9) H 07/23/16 19:11 INR 1.19 (0.87-1.13) H 07/23/16 19:11 VBG pH 7.432 (7.320-7.420) H 07/23/16 19:11 Sodium 144 mmol/L (137-145) 07/26/16 09:28 Potassium 4.4 mmol/L (3.6-5.0) 07/26/16 09:28 Chloride 107.9 mmol/L (98-107) H 07/26/16 09:28 Carbon Dioxide 22 mmol/L (22-30) 07/26/16 09:28 Anion Gap 19 mmol/L 07/26/16 09:28 BUN 6 mg/dL (7-17) L 07/26/16 09:28 Creatinine 0.6 mg/dL (0.7-1.2) L 07/26/16 09:28 Estimated GFR > 60 ml/min 07/26/16 09:28 BUN/Creatinine Ratio 10.00 % 07/26/16 09:28 Glucose 140 mg/dL (65-100) H 07/26/16 09:28 Lactic Acid 1.00 mmol/L (0.7-2.0) 07/23/16 21:45 Calcium 8.2 mg/dL (8.4-10.2) L 07/26/16 09:28 Total Bilirubin 0.40 mg/dL (0.1-1.2) 07/23/16 19:11 AST 14 units/L (5-40) 07/23/16 19:11 ALT 10 units/L (7-56) 07/23/16 19:11 Alkaline Phosphatase 81 units/L (35-129) 07/23/16 19:11 Total Protein 6.3 g/dL (6.3-8.2) 07/23/16 19:11 Albumin 3.4 g/dL (3.9-5) L 07/23/16 19:11 Albumin/Globulin Ratio 1.2 % 07/23/16 19:11 Prealbumin 0.110 g/L (0.200-0.400) L 07/24/16 05:37 Urine Color Yellow (Yellow) 07/23/16 19:06 Urine Turbidity Cloudy (Clear) 07/23/16 19:06 Urine pH 6.0 (5.0-7.0) 07/23/16 19:06 Ur Specific [place] 1.009 (1.003-1.030) 07/23/16 19:06 Urine Protein 30 mg/dl mg/dL (Negative) 07/23/16 19:06 Urine Glucose (UA) Neg mg/dL (Negative) 07/23/16 19:06 Urine Ketones Neg mg/dL (Negative) 07/23/16 19:06 Urine Blood Mod (Negative) 07/23/16 19:06 Urine Nitrite Pos (Negative) 07/23/16 19:06 Urine Bilirubin Neg (Negative) 07/23/16 19:06 Urine Urobilinogen < 2.0 mg/dL (<2.0) 07/23/16 19:06 Ur Leukocyte Esterase Lg (Negative) 07/23/16 19:06 Urine WBC (Auto) 153.0 /HPF (0.0-6.0) H 07/23/16 19:06 Urine RBC (Auto) 6.0 /HPF (0.0-6.0) 07/23/16 19:06 Urine Bacteria (Auto) 2+ /HPF (Negative) 07/23/16 19:06 Urine Mucus Few /HPF 07/23/16 19:06
[2016-07-26] MEDS: ZOCOR PO SCH (22:50)
[2016-07-26] MEDS: PEPCID IV SCH (22:50)
[2016-07-27] MEDS: ZOSYN/NS 2.25 GM/50ML 2.25 GM/50 ML BAG IV SCH ×4 (00:21→19:09)
[2016-07-27 09:03] LABS: Basophils % (Auto) 0.4 % (0.0-1.8); Eosinophils % (Auto) 3.8 % (0.0-4.3); Hematocrit 29.8 % (30.3-42.9); Hemoglobin 10.1 gm/dl (10.1-14.3); Mean Corpuscular HGB Conc 34 % (30-34); Mean Corpuscular Hemoglobin 30 pg (28-32); Mean Corpuscular Volume 88 fl (79-97); Platelet Count 223 K/mm3 (140-440); Red Blood Count 3.39 M/mm3 (3.65-5.03); Red Cell Distribution Width 14.5 % (13.2-15.2); White Blood Count 5.2 K/mm3 (4.5-11.0)
[2016-07-27 09:16] LABS: Anion Gap 18 mmol/L; BUN/Creatinine Ratio 11.42; Blood Urea Nitrogen 8 mg/dL (7-17); Calcium 8.5 mg/dL (8.4-10.2); Carbon Dioxide 24 mmol/L (22-30); Chloride 106.7 mmol/L (98-107); Glucose 83 mg/dL (65-100); Potassium 4.2 mmol/L (3.6-5.0); Sodium 144 mmol/L (137-145)
--- NOTE | 2016-07-27 10:40 | Progress Note ---
Assessment and Plan Assessment and plan: Sepsis with UTI. Blood cultures are negative. Urine culture reveals Escherichia coli. Continue antibiotics and IV fluids. Gram-negative Escherichia coli UTI, complicated. Continue iv zosyn --cultures are sensitive. Toxic metabolic encephalopathy. Improved. Continue to treat underlying medical causes. Severe hypokalemia. Resolved. Follow-up BMP. DVT prophylaxis. SCDs and subcutaneous Lovenox Probable severe malnutrition due to advance dementia. Continue IV fluid hydration. Follow up pre-albumin. History Interval history: Patient is much more responsive and alert today. No new issues overnight. Hospitalist Physical - Constitutional Vitals: Temp Pulse Resp BP Pulse Ox 98.4 F 78 14 110/58 98 07/27/16 07:39 07/27/16 07:39 07/27/16 07:39 07/27/16 07:39 07/27/16 07:39 General appearance: Present: no acute distress, well-nourished - EENT Eyes: Present: PERRL, EOM intact ENT: hearing intact, clear oral mucosa, dentition normal - Neck Neck: Present: supple, normal ROM - Respiratory Respiratory effort: normal Respiratory: bilateral: CTA - Cardiovascular Rhythm: regular Heart Sounds: Present: S1 & S2. Absent: gallop, rub - Extremities Extremities: no ischemia, No edema, Full ROM - Abdominal General gastrointestinal: soft, non-tender, non-distended, normal bowel sounds - Integumentary Integumentary: Present: clear, warm, dry - Neurologic Neurologic: CNII-XII intact, moves all extremities Results - Labs CBC & Chem 7: 07/27/16 08:21 07/27/16 08:21 Labs: Laboratory Last Values WBC 5.2 K/mm3 (4.5-11.0) 07/27/16 08:21 RBC 3.39 M/mm3 (3.65-5.03) L 07/27/16 08:21 Hgb 10.1 gm/dl (10.1-14.3) 07/27/16 08:21 Hct 29.8 % (30.3-42.9) L 07/27/16 08:21 MCV 88 fl (79-97) 07/27/16 08:21 MCH 30 pg (28-32) 07/27/16 08:21 MCHC 34 % (30-34) 07/27/16 08:21 RDW 14.5 % (13.2-15.2) 07/27/16 08:21 Plt Count 223 K/mm3 (140-440) 07/27/16 08:21 Lymph % (Auto) 21.7 % (13.4-35.0) 07/27/16 08:21 [place] % (Auto) 8.2 % (0.0-7.3) H 07/27/16 08:21 Eos % (Auto) 3.8 % (0.0-4.3) 07/27/16 08:21 Baso % (Auto) 0.4 % (0.0-1.8) 07/27/16 08:21 Lymph # 1.1 K/mm3 (1.2-5.4) L 07/27/16 08:21 [place] # 0.4 K/mm3 (0.0-0.8) 07/27/16 08:21 Eos # 0.2 K/mm3 (0.0-0.4) 07/27/16 08:21 Baso # 0.0 K/mm3 (0.0-0.1) 07/27/16 08:21 Seg Neutrophils % 65.9 % (40.0-70.0) 07/27/16 08:21 Seg Neutrophils # 3.5 K/mm3 (1.8-7.7) 07/27/16 08:21 PT 15.0 Sec. (12.2-14.9) H 07/23/16 19:11 INR 1.19 (0.87-1.13) H 07/23/16 19:11 VBG pH 7.432 (7.320-7.420) H 07/23/16 19:11 Sodium 144 mmol/L (137-145) 07/27/16 08:21 Potassium 4.2 mmol/L (3.6-5.0) 07/27/16 08:21 Chloride 106.7 mmol/L (98-107) 07/27/16 08:21 Carbon Dioxide 24 mmol/L (22-30) 07/27/16 08:21 Anion Gap 18 mmol/L 07/27/16 08:21 BUN 8 mg/dL (7-17) 07/27/16 08:21 Creatinine 0.7 mg/dL (0.7-1.2) 07/27/16 08:21 Estimated GFR > 60 ml/min 07/27/16 08:21 BUN/Creatinine Ratio 11.42 % 07/27/16 08:21 Glucose 83 mg/dL (65-100) 07/27/16 08:21 Lactic Acid 1.00 mmol/L (0.7-2.0) 07/23/16 21:45 Calcium 8.5 mg/dL (8.4-10.2) 07/27/16 08:21 Total Bilirubin 0.40 mg/dL (0.1-1.2) 07/23/16 19:11 AST 14 units/L (5-40) 07/23/16 19:11 ALT 10 units/L (7-56) 07/23/16 19:11 Alkaline Phosphatase 81 units/L (35-129) 07/23/16 19:11 Total Protein 6.3 g/dL (6.3-8.2) 07/23/16 19:11 Albumin 3.4 g/dL (3.9-5) L 07/23/16 19:11 Albumin/Globulin Ratio 1.2 % 07/23/16 19:11 Prealbumin 0.110 g/L (0.200-0.400) L 07/24/16 05:37 Urine Color Yellow (Yellow) 07/23/16 19:06 Urine Turbidity Cloudy (Clear) 07/23/16 19:06 Urine pH 6.0 (5.0-7.0) 07/23/16 19:06 Ur Specific [place] 1.009 (1.003-1.030) 07/23/16 19:06 Urine Protein 30 mg/dl mg/dL (Negative) 07/23/16 19:06 Urine Glucose (UA) Neg mg/dL (Negative) 07/23/16 19:06 Urine Ketones Neg mg/dL (Negative) 07/23/16 19:06 Urine Blood Mod (Negative) 07/23/16 19:06 Urine Nitrite Pos (Negative) 07/23/16 19:06 Urine Bilirubin Neg (Negative) 07/23/16 19:06 Urine Urobilinogen < 2.0 mg/dL (<2.0) 07/23/16 19:06 Ur Leukocyte Esterase Lg (Negative) 07/23/16 19:06 Urine WBC (Auto) 153.0 /HPF (0.0-6.0) H 07/23/16 19:06 Urine RBC (Auto) 6.0 /HPF (0.0-6.0) 07/23/16 19:06 Urine Bacteria (Auto) 2+ /HPF (Negative) 07/23/16 19:06 Urine Mucus Few /HPF 07/23/16 19:06
[2016-07-27] MEDS: LOVENOX SUB-Q SCH (12:11)
[2016-07-27] MEDS: NAMENDA XR PO SCH (12:12)
[2016-07-27] MEDS: RisperDAL PO SCH ×2 (12:12→21:57)
[2016-07-27] MEDS: ARICEPT PO SCH (12:12)
[2016-07-27] MEDS: NORVASC PO SCH (12:33)
[2016-07-27] MEDS: ZOCOR PO SCH (21:57)
[2016-07-27] MEDS: PEPCID IV SCH (21:57)
[2016-07-28] MEDS: ZOSYN/NS 2.25 GM/50ML 2.25 GM/50 ML BAG IV SCH ×5 (00:54→23:20)
[2016-07-28 06:33] LABS: Hematocrit 32.8 % (30.3-42.9); Hemoglobin 11.1 gm/dl (10.1-14.3); Mean Corpuscular HGB Conc 34 % (30-34); Mean Corpuscular Hemoglobin 30 pg (28-32); Mean Corpuscular Volume 88 fl (79-97); Red Blood Count 3.74 M/mm3 (3.65-5.03); Red Cell Distribution Width 13.9 % (13.2-15.2)
[2016-07-28 06:59] LABS: Anion Gap 17 mmol/L; BUN/Creatinine Ratio 13.33; Blood Urea Nitrogen 8 mg/dL (7-17); Calcium 8.7 mg/dL (8.4-10.2); Carbon Dioxide 24 mmol/L (22-30); Chloride 101.9 mmol/L (98-107); Glucose 76 mg/dL (65-100); Potassium 4.2 mmol/L (3.6-5.0); Sodium 139 mmol/L (137-145)
[2016-07-28 09:15] LABS: Basophils % (Manual) 0 % (0.0-1.8); Blastocytes % (Manual) 0 %; Eosinophils % (Manual) 0 % (0.0-4.3)
[2016-07-28 09:18] LABS: Large Platelets Few; Platelet Clumps Rare; White Blood Count 10.4 K/mm3 (4.5-11.0)
[2016-07-28 09:19] LABS: Anisocytosis 1+; Diff Status Complete; Platelet Count 249 K/mm3 (140-440); Platelet Estimate Cons
[2016-07-28] MEDS: LOVENOX SUB-Q SCH (09:27)
[2016-07-28] MEDS: RisperDAL PO SCH ×2 (09:28→21:32)
[2016-07-28] MEDS: NORVASC PO SCH (09:28)
[2016-07-28] MEDS: ARICEPT PO SCH (09:29)
[2016-07-28] MEDS: NAMENDA XR PO SCH (09:29)
--- NOTE | 2016-07-28 11:02 | Progress Note ---
Assessment and Plan Assessment and plan: Sepsis with UTI. Blood cultures are negative. Urine culture reveals Escherichia coli. Continue antibiotics and IV fluids. Gram-negative Escherichia coli UTI, complicated. Continue iv zosyn --cultures are sensitive. Toxic metabolic encephalopathy. Improved. Continue to treat underlying medical causes. Severe hypokalemia. Resolved. Follow-up BMP. DVT prophylaxis. SCDs and subcutaneous Lovenox Disposition. Anticipate discharge in a.m. if stable. History Interval history: Patient was somewhat somnolent yesterday and this morning. I discussed patient' s baseline mental status with the sister. Patient's sister states that she is somewhat more alert and responsive at baseline. Hospitalist Physical - Constitutional Vitals: Temp Pulse Resp BP Pulse Ox 97.4 F L 66 18 131/69 98 07/28/16 07:50 07/28/16 07:50 07/28/16 07:50 07/28/16 07:50 07/28/16 00:00 General appearance: Present: no acute distress, well-nourished - EENT Eyes: Present: PERRL, EOM intact ENT: hearing intact, clear oral mucosa, dentition normal - Neck Neck: Present: supple, normal ROM - Respiratory Respiratory effort: normal Respiratory: bilateral: CTA - Cardiovascular Rhythm: regular Heart Sounds: Present: S1 & S2. Absent: gallop, rub - Extremities Extremities: no ischemia, No edema, Full ROM - Abdominal General gastrointestinal: soft, non-tender, non-distended, normal bowel sounds - Integumentary Integumentary: Present: clear, warm, dry - Neurologic Neurologic: CNII-XII intact, moves all extremities Results - Labs CBC & Chem 7: 07/28/16 05:39 07/28/16 05:39 Labs: Laboratory Last Values WBC 10.4 K/mm3 (4.5-11.0) 07/28/16 05:39 RBC 3.74 M/mm3 (3.65-5.03) 07/28/16 05:39 Hgb 11.1 gm/dl (10.1-14.3) 07/28/16 05:39 Hct 32.8 % (30.3-42.9) 07/28/16 05:39 MCV 88 fl (79-97) 07/28/16 05:39 MCH 30 pg (28-32) 07/28/16 05:39 MCHC 34 % (30-34) 07/28/16 05:39 RDW 13.9 % (13.2-15.2) 07/28/16 05:39 Plt Count 249 K/mm3 (140-440) 07/28/16 05:39 Lymph % (Auto) 21.7 % (13.4-35.0) 07/27/16 08:21 [place] % (Auto) 8.2 % (0.0-7.3) H 07/27/16 08:21 Eos % (Auto) 3.8 % (0.0-4.3) 07/27/16 08:21 Baso % (Auto) 0.4 % (0.0-1.8) 07/27/16 08:21 Lymph # 1.1 K/mm3 (1.2-5.4) L 07/27/16 08:21 [place] # 0.4 K/mm3 (0.0-0.8) 07/27/16 08:21 Eos # 0.2 K/mm3 (0.0-0.4) 07/27/16 08:21 Baso # 0.0 K/mm3 (0.0-0.1) 07/27/16 08:21 Add Manual Diff Complete 07/28/16 05:39 Total Counted 100 07/28/16 05:39 Seg Neutrophils % 65.9 % (40.0-70.0) 07/27/16 08:21 Seg Neuts % (Manual) 68.0 % (40.0-70.0) 07/28/16 05:39 Band Neutrophils % 1.0 % 07/28/16 05:39 Lymphocytes % (Manual) 26.0 % (13.4-35.0) 07/28/16 05:39 Reactive Lymphs % (Man) 1.0 % 07/28/16 05:39 Monocytes % (Manual) 3.0 % (0.0-7.3) 07/28/16 05:39 Eosinophils % (Manual) 0 % (0.0-4.3) 07/28/16 05:39 Basophils % (Manual) 0 % (0.0-1.8) 07/28/16 05:39 Metamyelocytes % 1.0 % 07/28/16 05:39 Myelocytes % 0 % 07/28/16 05:39 Promyelocytes % 0 % 07/28/16 05:39 Blast Cells % 0 % 07/28/16 05:39 Nucleated RBC % Not Reportable 07/28/16 05:39 Seg Neutrophils # 3.5 K/mm3 (1.8-7.7) 07/27/16 08:21 Seg Neutrophils # Man 0.0 K/mm3 (1.8-7.7) L 07/28/16 05:39 Band Neutrophils # 0.0 K/mm3 07/28/16 05:39 Lymphocytes # (Manual) 0.0 K/mm3 (1.2-5.4) L 07/28/16 05:39 Abs React Lymphs (Man) 0.0 K/mm3 07/28/16 05:39 Monocytes # (Manual) 0.0 K/mm3 (0.0-0.8) 07/28/16 05:39 Eosinophils # (Manual) 0.0 K/mm3 (0.0-0.4) 07/28/16 05:39 Basophils # (Manual) 0.0 K/mm3 (0.0-0.1) 07/28/16 05:39 Metamyelocytes # 0.0 K/mm3 07/28/16 05:39 Myelocytes # 0.0 K/mm3 07/28/16 05:39 Promyelocytes # 0.0 K/mm3 07/28/16 05:39 Blast Cells # 0.0 K/mm3 07/28/16 05:39 WBC Morphology Not Reportable 07/28/16 05:39 Hypersegmented Neuts Not Reportable 07/28/16 05:39 Hyposegmented Neuts Not Reportable 07/28/16 05:39 Hypogranular Neuts Not Reportable 07/28/16 05:39 Smudge Cells Not Reportable 07/28/16 05:39 Toxic Granulation Not Reportable 07/28/16 05:39 Toxic Vacuolation Not Reportable 07/28/16 05:39 Dohle Bodies Not Reportable 07/28/16 05:39 Pelger-Huet Anomaly Not Reportable 07/28/16 05:39 Dinora Rods Not Reportable 07/28/16 05:39 Platelet Estimate Cons 07/28/16 05:39 Clumped Platelets Rare 07/28/16 05:39 Plt Clumps, EDTA Not Reportable 07/28/16 05:39 Large Platelets Few 07/28/16 05:39 Giant Platelets Not Reportable 07/28/16 05:39 Platelet Satelliting Not Reportable 07/28/16 05:39 Plt Morphology Comment Not Reportable 07/28/16 05:39 RBC Morphology Not Reportable 07/28/16 05:39 Dimorphic RBCs Not Reportable 07/28/16 05:39 Polychromasia Not Reportable 07/28/16 05:39 Hypochromasia Not Reportable 07/28/16 05:39 Poikilocytosis Not Reportable 07/28/16 05:39 Anisocytosis 1+ 07/28/16 05:39 Microcytosis Not Reportable 07/28/16 05:39 Macrocytosis Not Reportable 07/28/16 05:39 Spherocytes Not Reportable 07/28/16 05:39 Pappenheimer Bodies Not Reportable 07/28/16 05:39 Sickle Cells Not Reportable 07/28/16 05:39 Target Cells Not Reportable 07/28/16 05:39 Tear Drop Cells Not Reportable 07/28/16 05:39 Ovalocytes Not Reportable 07/28/16 05:39 Helmet Cells Not Reportable 07/28/16 05:39 [place] Bodies Not Reportable 07/28/16 05:39 Ad[place]us Rings Not Reportable 07/28/16 05:39 [place] Cells Not Reportable 07/28/16 05:39 Bite Cells Not Reportable 07/28/16 05:39 Crenated Cell Not Reportable 07/28/16 05:39 Elliptocytes Not Reportable 07/28/16 05:39 Acanthocytes (Spur) Not Reportable 07/28/16 05:39 Rouleaux Not Reportable 07/28/16 05:39 Hemoglobin C Crystals Not Reportable 07/28/16 05:39 Schistocytes Not Reportable 07/28/16 05:39 Malaria parasites Not Reportable 07/28/16 05:39 [place] Bodies Not Reportable 07/28/16 05:39 Hem Pathologist Commnt No 07/28/16 05:39 PT 15.0 Sec. (12.2-14.9) H 07/23/16 19:11 INR 1.19 (0.87-1.13) H 07/23/16 19:11 VBG pH 7.432 (7.320-7.420) H 07/23/16 19:11 Sodium 139 mmol/L (137-145) 07/28/16 05:39 Potassium 4.2 mmol/L (3.6-5.0) 07/28/16 05:39 Chloride 101.9 mmol/L (98-107) 07/28/16 05:39 Carbon Dioxide 24 mmol/L (22-30) 07/28/16 05:39 Anion Gap 17 mmol/L 07/28/16 05:39 BUN 8 mg/dL (7-17) 07/28/16 05:39 Creatinine 0.6 mg/dL (0.7-1.2) L 07/28/16 05:39 Estimated GFR > 60 ml/min 07/28/16 05:39 BUN/Creatinine Ratio 13.33 % 07/28/16 05:39 Glucose 76 mg/dL (65-100) 07/28/16 05:39 Lactic Acid 1.00 mmol/L (0.7-2.0) 07/23/16 21:45 Calcium 8.7 mg/dL (8.4-10.2) 07/28/16 05:39 Total Bilirubin 0.40 mg/dL (0.1-1.2) 07/23/16 19:11 AST 14 units/L (5-40) 07/23/16 19:11 ALT 10 units/L (7-56) 07/23/16 19:11 Alkaline Phosphatase 81 units/L (35-129) 07/23/16 19:11 Total Protein 6.3 g/dL (6.3-8.2) 07/23/16 19:11 Albumin 3.4 g/dL (3.9-5) L 07/23/16 19:11 Albumin/Globulin Ratio 1.2 % 07/23/16 19:11 Prealbumin 0.110 g/L (0.200-0.400) L 07/24/16 05:37 Urine Color Yellow (Yellow) 07/23/16 19:06 Urine Turbidity Cloudy (Clear) 07/23/16 19:06 Urine pH 6.0 (5.0-7.0) 07/23/16 19:06 Ur Specific [place] 1.009 (1.003-1.030) 07/23/16 19:06 Urine Protein 30 mg/dl mg/dL (Negative) 07/23/16 19:06 Urine Glucose (UA) Neg mg/dL (Negative) 07/23/16 19:06 Urine Ketones Neg mg/dL (Negative) 07/23/16 19:06 Urine Blood Mod (Negative) 07/23/16 19:06 Urine Nitrite Pos (Negative) 07/23/16 19:06 Urine Bilirubin Neg (Negative) 07/23/16 19:06 Urine Urobilinogen < 2.0 mg/dL (<2.0) 07/23/16 19:06 Ur Leukocyte Esterase Lg (Negative) 07/23/16 19:06 Urine WBC (Auto) 153.0 /HPF (0.0-6.0) H 07/23/16 19:06 Urine RBC (Auto) 6.0 /HPF (0.0-6.0) 07/23/16 19:06 Urine Bacteria (Auto) 2+ /HPF (Negative) 07/23/16 19:06 Urine Mucus Few /HPF 07/23/16 19:06
[2016-07-28] MEDS: PEPCID IV SCH (21:32)
[2016-07-28] MEDS: ZOCOR PO SCH (21:35)
[2016-07-29] MEDS: ZOSYN/NS 2.25 GM/50ML 2.25 GM/50 ML BAG IV SCH (05:04)
--- NOTE | 2016-07-29 08:39 | Discharge Summary ---
Providers - Providers Date of Admission: 07/23/16 21:07 Date of discharge: 07/29/16 Attending physician: GALLO GONZALEZ 07/25/16 08:20 Speech Therapy Evaluation and Treat [CONS] Routine Reason For Exam: evaluate swallowing 07/28/16 17:22 Physical Therapy Evaluation and Treat [CONS] Routine Comment: Reason For Exam: DECONDITIONING, PLACEMENT Primary care physician: BUILDING CONSTRUCTION ESTIMATOR Hospitalization Reason for admission: sepsis, uti Condition: Fair Hospital course: Patient is a 80-year-old woman from [facility] with a documented history of severe dementia, seizure disorder, hypertension, ?breast cancer on Anastrozole and hypothyroidism who presented with fever and altered mental status with lethargy. She was found have a temperature 101.6 white blood cell count of 13. She was also found have potassium 2.6 on admission. Patient was admitted with diagnosis of sepsis with UTI, toxic metabolic encephalopathy and hypokalemia. Patient was treated with IV antibiotics and IV fluid hydration. Urine culture revealed Escherichia coli sensitive to IV Zosyn. The hypokalemia resolved with potassium repletion. The patient returned back to her baseline mental status per family. The patient is felt to have received maximal hospital benefit and will be discharged back to the [facility]. Dedicated discharge time 35 minutes. Disposition: DISCHARGED TO HOME OR SELFCARE Time spent for discharge: 35 - Discharge Diagnoses (1) Sepsis Status: Acute Qualifiers: Sepsis type: S (2) Fever Status: Acute Qualifiers: Fever type: F Encounter type: E (3) Hypokalemia Status: Acute (4) UTI (urinary tract infection) Status: Acute Qualifiers: Urinary tract infection type: U Hematuria presence: H Indwelling urinary catheter type: I Encounter type: E Core Measure Documentation - Palliative Care Palliative Care/ Comfort Measures: Not Applicable - Core Measures Any of the following diagnoses?: none Exam - Constitutional Vitals: Temp Pulse Resp BP Pulse Ox 97.8 F 71 16 127/64 98 07/29/16 04:15 07/29/16 04:20 07/29/16 04:15 07/29/16 04:15 07/29/16 04:15 General appearance: Present: no acute distress, well-nourished - EENT Eyes: Present: PERRL ENT: hearing intact, clear oral mucosa - Neck Neck: Present: supple, normal ROM - Respiratory Respiratory effort: normal Respiratory: bilateral: CTA - Cardiovascular Heart Sounds: Present: S1 & S2. Absent: rub, click - Extremities Extremities: pulses symmetrical, No edema Peripheral Pulses: within normal limits - Abdominal General gastrointestinal: Present: soft, non-tender, non-distended, normal bowel sounds Female genitourinary: Present: normal - Integumentary Integumentary: Present: clear, warm, dry - Musculoskeletal Musculoskeletal: gait normal, strength equal bilaterally - Psychiatric Psychiatric: appropriate mood/affect, intact judgment & insight - Neurologic Neurologic: CNII-XII intact, moves all extremities, other (confused) Plan Activity: advance as tolerated Weight Bearing Status: Weight Bear as Tolerated Diet: regular Follow up with: PRIMARY CARE,MD [Primary Care Provider] - 3-5 Days Prescriptions: amLODIPine [Norvasc] 10 mg PO DAILY #30 tablet Ammonium Lactate [Lac-Hydrin Lotion] 225 gm TP DAILY #1 bottle Doxycycline [Vibramycin CAP] 100 mg PO Q12HR #8 capsule Hydrochlorothiazide [HCTZ] 12.5 mg PO QDAY #30 capsule Mometasone Furoate [Nasonex] 2 spray NS QDAY #30 spray.pump risperiDONE [RisperDAL] 0.25 mg PO BID #60 tablet Trazodone HCl 50 mg PO PRN #30 tablet
[2016-07-29 08:59] LABS: Basophils % (Auto) 0.6 % (0.0-1.8); Eosinophils % (Auto) 3.9 % (0.0-4.3); Hematocrit 32.7 % (30.3-42.9); Hemoglobin 10.7 gm/dl (10.1-14.3); Mean Corpuscular HGB Conc 33 % (30-34); Mean Corpuscular Hemoglobin 30 pg (28-32); Mean Corpuscular Volume 90 fl (79-97); Platelet Count 254 K/mm3 (140-440); Red Blood Count 3.62 M/mm3 (3.65-5.03); Red Cell Distribution Width 14.3 % (13.2-15.2); White Blood Count 5.1 K/mm3 (4.5-11.0)
[2016-07-29] MEDS: NORVASC PO SCH (09:09)
[2016-07-29] MEDS: RisperDAL PO SCH (09:10)
[2016-07-29] MEDS: LOVENOX SUB-Q SCH (09:10)
[2016-07-29] MEDS: ARICEPT PO SCH (09:10)
[2016-07-29] MEDS: NAMENDA XR PO SCH (09:10)
[2016-07-29 09:25] LABS: Anion Gap 15 mmol/L; BUN/Creatinine Ratio 11.42; Blood Urea Nitrogen 8 mg/dL (7-17); Calcium 8.5 mg/dL (8.4-10.2); Carbon Dioxide 27 mmol/L (22-30); Chloride 104.9 mmol/L (98-107); Glucose 80 mg/dL (65-100); Potassium 3.9 mmol/L (3.6-5.0); Sodium 143 mmol/L (137-145)
[2016-07-29 11:26] VITALS: BP 122/58
== END 2016-07-29 12:00 | disposition home or self-care (01) | DRG 871 ==
LOC: ED 18:15 → 3A 21:07
PROVIDERS: ADMIT Internal Medicine; ATTEND Hospitalist
DX: A41.9 Sepsis, unspecified organism (principal); R53.2 Functional quadriplegia; G93.41 Metabolic encephalopathy; E43 Unspecified severe protein-calorie malnutrition; N39.0 Urinary tract infection, site not specified; E87.6 Hypokalemia; F03.90 Unspecified dementia, unspecified severity, without behavioral disturbance, psychotic disturbance, mood disturbance, and anxiety; G40.909 Epilepsy, unspecified, not intractable, without status epilepticus; I10 Essential (primary) hypertension; E03.9 Hypothyroidism, unspecified; E86.0 Dehydration; B96.20 Unspecified Escherichia coli [E. coli] as the cause of diseases classified elsewhere; Z90.12 Acquired absence of left breast and nipple
CPT/HCPCS: 36415; 71010; 80048; 80053; 81001; 82140; 82805; 84134; 85007; 85025; 85027; 85610; 87040; 87076; 87086; 87186; 93005; 93010; 96361; 96365; C9113; G8996-GN; G8997-GN; G8998-GN; J0696; J1650; J2543; J3480; J7042

== ENCOUNTER 2019-02-23 18:30 | Emergency (ER) | payer MEDICARE ==
--- NOTE | 2019-02-23 19:02 | Emergency Department Report ---
HPI - General Chief Complaint: Wound/Laceration Time Seen by Provider: 02/23/19 18:40 - HPI HPI: 83-year-old female sense to the emergency department via EMS from her [facility] for evaluation of a right hip wound, a sacral wound and a blister on her heel. The patient has a history of arthritis, Alzheimer's, hypertension, hypothyroidism, and the patient is non-verbal at baseline. I spoke to a woman named Joaquin, network support administrator at the [facility], who says that she was sent in for evaluation of these wounds and to make sure that they have not caused any significant infection. She says that it has progressed recently from some redness to an ulcer. The patient is DO NOT RESUSCITATE and on hospice but the network support administrator says she did not "like what hospice was saying and they were not doing anything." ED Past Medical Hx - Past Medical History Previous Medical History?: Yes Hx Hypertension: Yes Hx CVA: No Hx Heart Attack/AMI: No Hx Congestive Heart Failure: No Hx Diabetes: No Hx Deep Vein Thrombosis: No Hx Pulmonary Embolism: No Hx GERD: No Hx Liver Disease: No Hx Renal Disease: No Hx Sickle Cell Disease: No Hx Arthritis: No Hx Headaches / Migraines: No Hx Seizures: Yes Hx Kidney Stones: No Hx Psychiatric Treatment: Yes (risperidone) Hx Asthma: No Hx COPD: No Hx Tuberculosis: No Hx Dementia: Yes Hx HIV: No Additional medical history: hypothyroidism - Surgical History Past Surgical History?: Yes Hx Coronary Stent: No Hx Open Heart Surgery: No Hx Pacemaker: No Hx Internal Defibrillator: No Hx Cholecystectomy: No Hx Appendectomy: No Hx Breast Surgery: Yes (left breast mastectomy) - Social History Smoking Status: Unknown if ever smoked - Medications Home Medications: Home Medications Medication Instructions Recorded Confirmed Last Taken Type Anastrozole (Nf) [Arimidex (Nf)] 1 mg PO DAILY 07/23/16 07/23/16 07/23/16 History Donepezil HCl 10 mg PO DAILY 07/23/16 07/23/16 07/23/16 History Memantine HCl [Namenda] 5 mg PO DAILY 07/23/16 07/23/16 07/23/16 History Simvastatin [Zocor TAB] 10 mg PO QHS 07/23/16 07/23/16 07/22/16 History Ammonium Lactate [Lac-Hydrin 225 gm TP DAILY #1 bottle 07/29/16 Unknown Rx Lotion] DOXYCYCLINE Hyclate [Vibramycin 100 mg PO Q12HR #8 capsule 07/29/16 Unknown Rx CAP] Mometasone Furoate [Nasonex] 2 spray NS QDAY #30 spray.pump 07/29/16 Unknown Rx Trazodone HCl 50 mg PO PRN #30 tablet 07/29/16 Unknown Rx amLODIPine 10 mg PO DAILY #30 tablet 07/29/16 Unknown Rx hydroCHLOROthiazide [HCTZ] 12.5 mg PO QDAY #30 capsule 07/29/16 Unknown Rx risperiDONE [RisperDAL] 0.25 mg PO BID #60 tablet 07/29/16 Unknown Rx Sulfamethoxazole/Trimethoprim 1 each PO BID #14 tablet 02/23/19 Unknown Rx [Bactrim DS TAB] ED Review of Systems ROS: Stated complaint: AMS Other details as noted in HPI Comment: Unobtainable due to pts medical conditions Skin: lesions Physical Exam - Physical Exam Physical Exam: GENERAL: The patient is well-developed well-nourished. HENT: Normocephalic. Atraumatic. Patient has moist mucous membranes. EYES: Extraocular motions are intact. NECK: Supple. Trachea is midline. CHEST/LUNGS: Clear to auscultation. There is no respiratory distress noted. HEART/CARDIOVASCULAR: Regular. There is no tachycardia. There is no murmur. ABDOMEN: Abdomen is soft, nontender. Patient has normal bowel sounds. There is no abdominal distention. SKIN: There is a stage II ulcer to the right lateral hip and buttock is about 5 inches in diameter. There is a stage I sacral decubitus ulcer that is very small. NEURO: The patient is awake but confused. Nonverbal. MUSCULOSKELETAL: There is no tenderness to palpation. ED Medical Decision Making - Lab Data Result diagrams: 02/23/19 19:38 02/23/19 19:38 - Radiology Data Radiology results: image reviewed interpreted by me: Chest x-ray does not show any acute process. There are no pleural effusions, obvious pneumonia and there is no pneumothorax. X-ray of the right hip does not show any fracture, dislocation, signs of osteomyelitis - Medical Decision Making This patient was sent in by her personal half-way for evaluation of some wounds, including the right hip and a sacral decubitus wound, to make sure that they had not become infected or caused any type of systemic infection. The right hip/buttock wound is a stage II ulcer that is about 5 inches in its greatest diameter. The sacral decubitus ulcer is stage I and very small. Patient's labs are mostly unremarkable. There is no significant elevation in her white blood cell count. No lactic acidosis. Patient's vital signs stable throughout her ED course. X-ray was done of the right hip that does not show any fracture, dislocation or signs of osteomyelitis. The patient's paperwork says that she is followed by Dr. Christensen for primary care. The patient does not appear septic and is currently a DO NOT RESUSCITATE on hospice. She has been given a referral for the wound care clinic and has been started on antibiotics. Patient will be discharged back to her personal half-way. - Differential Diagnosis pressure ulcer, cellulitis, sepsis Critical Care Time: No Critical care attestation.: If time is entered above; I have spent that time in minutes in the direct care of this critically ill patient, excluding procedure time. ED Disposition Clinical Impression: Decubitus ulcer of right hip Qualifiers: Pressure injury stage: stage 2 Qualified Code(s): L89.212 - Pressure ulcer of right hip, stage 2 Sacral decubitus ulcer Qualifiers: Pressure injury stage: stage 1 Qualified Code(s): L89.151 - Pressure ulcer of sacral region, stage 1 Disposition: DC-01 TO HOME OR SELFCARE Is pt being admited?: No Condition: Stable Instructions: Acute Wound Care (ED), Chronic Wound Care (ED), Pressure Ulcer (ED) Additional Instructions: Please follow up with the primary care physician and your hospice care. I have also given you a referral for the wound care clinic. Take the antibiotics as prescribed. Return to the emergency Department with any worsening of her symptoms or any acute distress. Prescriptions: Sulfamethoxazole/Trimethoprim [Bactrim DS TAB] 1 each PO BID #14 tablet Referrals: [facility] [Outside] - 2-3 Days Time of Disposition: 22:10
[2019-02-23 19:27] LABS: Bacteria,Urine 2+ /HPF (Negative); Bilirubin,Urine NEG (Negative); Blood,Urine NEG (Negative); Color,Urine Yellow (Yellow); Mucus,Urine FEW /HPF; Protein,Urine <15 mg/dL mg/dL (Negative)
--- NOTE | 2019-02-23 20:08 | XRay Report ---
Right hip-3 views INDICATION: right hip infection. COMPARISON: None. IMPRESSION: Subcutaneous gas and soft tissue swelling overlying the right hip but no obvious bone de struction or periostitis to suggest osteomyelitis. There is a chronic left-sided subcapital femoral n rojas fracture and moderate degenerative changes throughout the pelvis to include the hips. Signer Name: Mati Mejia MD Signed: 02/23/2019 8:04 PM Workstation Name: [id number]
--- NOTE | 2019-02-23 20:09 | XRay Report ---
CHEST 1 VIEW INDICATION: SOB. COMPARISON: 07/23/2016 FINDINGS: Support devices: Stable satisfactory device positioning. Heart: Within normal limits. Lungs/Pleura: No acute air space or interstitial disease. Additional findings: None. IMPRESSION: 1. No acute findings. Signer Name: Mati Mejia MD Signed: 02/23/2019 8:05 PM Workstation Name: [id number]
[2019-02-23 20:10] LABS: Basophils % (Auto) 0.2 % (0.0-1.8); Eosinophils % (Auto) 0.2 % (0.0-4.3); Hematocrit 30.9 % (30.3-42.9); Hemoglobin 10.2 gm/dl (10.1-14.3); Lymphocytes # (Auto) 0.7 K/mm3 (1.2-5.4); Lymphocytes % (Auto) 6.3 % (13.4-35.0); Mean Corpuscular HGB Conc 33 % (30-34); Mean Corpuscular Volume 87 fl (79-97); Monocytes # (Auto) 0.7 K/mm3 (0.0-0.8); Monocytes % (Auto) 6.2 % (0.0-7.3); Platelet Count 401 K/mm3 (140-440); Red Blood Count 3.56 M/mm3 (3.65-5.03); Red Cell Distribution Width 13.6 % (13.2-15.2)
[2019-02-23 20:14] LABS: Albumin 2.5 g/dL (3.9-5); BUN/Creatinine Ratio 20; Blood Urea Nitrogen 10 mg/dL (7-17); Calcium 7.8 mg/dL (8.4-10.2); Hemolysis Index 116
[2019-02-23 20:31] LABS: Alanine Aminotransferase 9 units/L (7-56)
[2019-02-24 00:33] VITALS: BP 110/50
== END 2019-02-24 01:39 | disposition home or self-care (01) ==
LOC: ED 18:30
DX: L89.212 Pressure ulcer of right hip, stage 2 (principal); L89.151 Pressure ulcer of sacral region, stage 1; I10 Essential (primary) hypertension; E03.9 Hypothyroidism, unspecified; F03.90 Unspecified dementia, unspecified severity, without behavioral disturbance, psychotic disturbance, mood disturbance, and anxiety; Z98.890 Other specified postprocedural states; Z79.899 Other long term (current) drug therapy
CPT/HCPCS: 36415; 71045; 80053; 81001; 82140; 84443; 85025; 87040